=== PATIENT | female | born 1990 | race Caucasian/White ===

== ENCOUNTER 2016-09-27 17:06 | Inpatient (IN) | payer OTHER ==
[~2016-09-27] VITALS: Ht 167.6 cm; Wt 67.0 kg
[2016-09-27 17:32] LABS: EOSINOPHIL (%) 0.6 % (0-5); HEMATOCRIT 43.6 % (36.0-46.0); IMMATURE GRANULOCYTE (%) 0.3 % (0.0-0.7); IMMATURE GRANULOCYTE COUNT 0.2 K/uL; LYMPHOCYTE COUNT 1.4 K/uL (1.0-2.8); MCH 31.8 PG (29.0-34.0); MCHC 35.3 G/DL (30.0-36.0); MCV 90.1 FL (83-99); MEAN PLAT.VOLUME 10.5 uM^3 (9.5-12.4); MONOCYTE COUNT 0.3 K/uL (0-0.8); NEUTROPHIL (%) 74.2 % (45-76); NEUTROPHIL COUNT 5.2 K/uL (1.8-6.4); PLATELET COUNT 270 K/uL (156-360); RBC DIS.WIDTH-SD 42.2 % (39-53); RED BLOOD COUNT 4.84 M/uL (3.80-5.20); WHITE BLOOD COUNT 7.1 K/uL (4.1-10.2)
[2016-09-27 17:43] LABS: CHLORIDE 109 mEq/L (99-109); POTASSIUM 3.6 mEq/L (3.7-5.4); SODIUM 147 mEq/L (136-147)
[2016-09-27 17:45] LABS: GLUCOSE 118 mg/dL (70-99)
[2016-09-27 17:46] LABS: ANION GAP 14 MEQ/L (2-14)
[2016-09-27 17:47] LABS: TOTAL BILIRUBIN 0.5 mg/dL (0.0-1.0)
[2016-09-27 17:48] LABS: SERUM ETHYL ALCOHOL 239 mg/dL
[2016-09-27 17:50] LABS: ALKALINE PHOSPHATASE 71 IU/L (3-129)
[2016-09-27 17:51] LABS: UREA NITROGEN (BUN) 8 mg/dL (9-23)
[2016-09-27 17:52] LABS: GFR ESTIMATE (CALCULATED) > 59 mL/min/; SALICYLATE < 5.0 MG/DL (15-30)
[2016-09-27 17:53] LABS: CREATINE KINASE 92 IU/L (1-294); TOTAL CK 92 IU/L (1-294)
[2016-09-27 17:59] LABS: QUANTITATIVE HCG < 4.0 MIU/ML
[2016-09-27 18:00] LABS: CK-MB 1.1 ng/mL (0.0-4.9)
[2016-09-28 03:04] LABS: ADD MIUA? YES; BILIRUBIN NEGATIVE; BLOOD NEGATIVE; COLOR YELLOW ((YELLOW)); GLUCOSE (STRIP) NEGATIVE; KETONES NEGATIVE; LEUKOCYTES TRACE; NITRITE NEGATIVE; PROTEIN (STRIP) TRACE; SPECIFIC GRAVITY 1.015 (1.000-1.030); UROBILINOGEN 0.2 MG/DL (0.2-1.0)
[2016-09-28 03:14] LABS: ADD MEDTOX COMMENT Y; AMPHETAMINE NEGATIVE (500 ng/mL); BARBITURATES NEGATIVE (200 ng/mL); BENZODIAZEPINES NEGATIVE (150 ng/mL); COCAINE NEGATIVE (150 ng/mL); INTERNAL CONTROLS VALID? YES; METHADONE NEGATIVE (200 ng/mL); METHAMPHETAMINE NEGATIVE (500 ng/mL); OPIATES (MORPHINE) NEGATIVE (100 ng/mL); OXYCODONE NEGATIVE (100 ng/mL); PHENCYCLIDINE NEGATIVE (25 ng/mL); PROPOXYPHENE NEGATIVE (300 ng/mL); THC CANNABINOIDS PRESUMPTIVE POSITIVE (50 ng/mL); TRICYCLIC ANTIDEPRESSANTS NEGATIVE (300 ng/mL)
[2016-09-28 03:18] LABS: BACTERIA 1+; CASTS NONE SEEN /LPF; CRYSTALS NONE SEEN; EPITHELIAL CELLS 2+; MUCUS NONE SEEN; RED BLOOD CELLS NONE SEEN /HPF (0-5); UCUL ADDED? NO; WHITE BLOOD CELLS 0-5 /HPF (0-5)
[2016-09-28] MEDS ORDERED: LAMICTAL200 MG PO (03:20)
[2016-09-28] MEDS ORDERED: WELLBUTRIN SR100 MG PO (03:21)
[2016-09-28] MEDS ORDERED: TRAZODONE HCL50 MG PO (03:21)
[2016-09-28] MEDS ORDERED: ATARAX10 MG PO (03:22)
[2016-09-28 05:13] VITALS: BP 133/66
[2016-09-28 07:58] VITALS: BP 124/67
[2016-09-28 15:31] VITALS: BP 142/55
[2016-09-29 07:52] VITALS: BP 127/70
[2016-09-29 15:24] VITALS: BP 136/77
[2016-09-30 09:05] VITALS: BP 126/71
[2016-09-30 16:11] VITALS: BP 137/82
[2016-10-01 07:49] VITALS: BP 133/73
[2016-10-01] MEDS ORDERED: LITHIUM CARBON300 M2 PO (09:21)
[2016-10-01 15:36] VITALS: BP 127/81
[2016-10-02 07:51] VITALS: BP 119/69
[2016-10-02 15:38] VITALS: BP 127/79
[2016-10-03 09:06] VITALS: BP 129/75
[2016-10-03] MEDS ORDERED: LITHOBID300 MG PO (09:27)
[2016-10-03] MEDS ORDERED: WELLBUTRIN SR100 MG PO (09:27)
== END 2016-10-03 10:14 | disposition home or self-care (01) | DRG 885 ==
LOC: EME 17:06 → EDOF 09-28 03:33 → 1WEST 09-28 03:33
PROVIDERS: Emergency Medicine
DX: F33.9 Major depressive disorder, recurrent, unspecified (principal); R45.851 Suicidal ideations; F50.2 Bulimia nervosa; F10.10 Alcohol abuse, uncomplicated; F12.10 Cannabis abuse, uncomplicated; T43.212A Poisoning by selective serotonin and norepinephrine reuptake inhibitors, intentional self-harm, initial encounter; Z56.0 Unemployment, unspecified; Z68.23 Body mass index [BMI] 23.0-23.9, adult; Z81.8 Family history of other mental and behavioral disorders
CPT/HCPCS: 80053; 81003; 82550; 82553; 84443; 84702; 84999; 85025; 90839; 93005; 97150 GO; 97165 GO; 99281; 99285; G0480; J2405; J2765; J7030